=== PATIENT | female | born 1965 ===

== ENCOUNTER 2016-09-18 14:44 | Emergency (ER) | payer MEDICARE, MEDICAID ==
[2016-09-18 15:28] VITALS: BP 130/78; PULSE 76; RESP 16; TEMP 97.4; O2SAT 99
[2016-09-18] MEDS: Naproxen 550 mg Tab PO STA ×2 (16:00→16:42)
[2016-09-18] MEDS ORDERED: Naproxen 550 mg Tab PO ONE (16:01)
--- NOTE | 2016-09-18 18:17 | C.PDOC ---
History Of Present Illness 51 year old female presents to the ED with complaints of left shoulder pain for the past 2 months. Patient states the pain is worse with movement and lifting and not relieved by Percocet which she is taking for knee replacement. She has been following up with Ortho for her knee but never mentioned the shoulder pain and has no other complaints at this time. Time Seen by Provider: 09/18/16 15:22 Chief Complaint (Nursing): Upper Extremity Problem/Injury History Per: Patient History/Exam Limitations: no limitations Onset/Duration Of Symptoms: Days Current Symptoms Are (Timing): Still Present Quality: "Pain" Exacerbating Factor(s): Movement Past Medical History Reviewed: Historical Data, Nursing Documentation, Vital Signs Vital Signs: Last Vital Signs Temp 97.4 F L 09/18/16 15:25 Pulse 76 09/18/16 15:25 Resp 16 09/18/16 15:25 BP 130/78 09/18/16 15:25 Pulse Ox 99 09/18/16 18:19 - Medical History PMH: Bipolar Disorder, Mitral Valve Prolapse Surgical History: Appendectomy - [facility] Procedures TETANUS TOXOID ADMINIST (12/10/12) Family History: States: Unknown Family Hx - Social History Hx Tobacco Use: No Hx Alcohol Use: No Hx Substance Use: No - Immunization History Hx Tetanus Toxoid Vaccination: No Hx Influenza Vaccination: No Hx Pneumococcal Vaccination: No Review Of Systems Except As Marked, All Systems Reviewed And Found Negative. Constitutional: Negative for: Fever Musculoskeletal: Positive for: Shoulder Pain (+Left shoulder pain) Neurological: Negative for: Weakness, Numbness Physical Exam - Physical Exam Appears: Non-toxic, No Acute Distress Skin: Normal Color, Warm, Dry Neck: Supple Extremity: No Normal ROM (Markedly decreased ROM to the left shoulder due to pain), Tenderness (+Diffuse tenderness to the left shoulder), Capillary Refill ( < 2 seconds), No Deformity, No Swelling Neurological/Psych: Oriented x3, Normal Speech, Normal Cognition, Normal Sensation ED Course And Treatment O2 Sat by Pulse Oximetry: 99 (Room air) Pulse Ox Interpretation: Normal Progress Note: Left Shoulder X-ray ordered. Patient eloped from the ED. Disposition - Disposition Disposition: ELOPEMENT - ER ONLY Disposition Time: 00:00 Condition: UNKNOWN - Clinical Impression Clinical Impression: Shoulder pain - Scribe Statement The provider has reviewed the documentation as recorded by the Scribe All medical record entries made by the Scribe were at my direction and personally dictated by me. I have reviewed the chart and agree that the record accurately reflects my personal performance of the history, physical exam, medical decision making, and the department course for this patient. I have also personally directed, reviewed, and agree with the discharge instructions and disposition. Provider Attestation: All medical record entries made by the Scribe were at my direction and personally dictated by me. I have reviewed the chart and agree that the record accurately reflects my personal performance of the history, physical exam, medical decision making, and the department course for this patient. I have also personally directed, reviewed, and agree with the discharge instructions and disposition.
== END 2016-09-18 15:40 | disposition left against medical advice (07) ==
LOC: C.ER 14:44
DX: M25.512 Pain in left shoulder (principal)